=== PATIENT | male | born 2000 | race Hispanic/Latino ===

== ENCOUNTER 2021-05-07 15:31 | Emergency (ER) | payer OTHER ==
[2021-05-07 15:47] VITALS: BP 164/87
== END 2021-05-07 18:44 | disposition home or self-care (01) ==
LOC: EDH 15:31
DX: S61.232A Puncture wound without foreign body of right middle finger without damage to nail, initial encounter (principal); Z77.21 Contact with and (suspected) exposure to potentially hazardous body fluids; W46.0XXA Contact with hypodermic needle, initial encounter; Y93.89 Activity, other specified; Y92.89 Other specified places as the place of occurrence of the external cause; Y99.0 Civilian activity done for income or pay
CPT/HCPCS: 99281

== ENCOUNTER 2023-10-17 17:56 | Emergency (ER) | payer BC, OTHER ==
[~2023-10-17] VITALS: Ht 170.2 cm; Wt 85.3 kg
[2023-10-17 20:04] VITALS: BP 154/78; PULSE 78; RESP 18; O2SAT 98
[2023-10-17] MEDS ORDERED: IBUP-2070 PO (20:08)
== END 2023-10-17 20:15 | disposition home or self-care (01) ==
LOC: EDH 17:56
DX: S86.912A Strain of unspecified muscle(s) and tendon(s) at lower leg level, left leg, initial encounter (principal); X58.XXXA Exposure to other specified factors, initial encounter; Y93.89 Activity, other specified; Y92.89 Other specified places as the place of occurrence of the external cause; Y99.8 Other external cause status
CPT/HCPCS: 73562